=== PATIENT | female | born 2000 | race Caucasian/White ===

== ENCOUNTER 2018-08-01 07:35 | Emergency (ER) | payer BC ==
[2018-08-01 07:48] VITALS: TEMP 97.8; BMI 26.9
--- NOTE | 2018-08-01 08:32 | PDOC ---
History of Present Illness - General Chief Complaint: Pain, Acute Stated Complaint: LOWER ABDOMINAL PAIN Time Seen by Provider: 08/01/18 08:21 History Source: Patient Exam Limitations: No Limitations - History of Present Illness Initial Comments: 17 yo F w no reported pmh presents with lower/periumbilical abdominal sharp pain that began yesterday which she rates 3/4 in intensity right now but occasionally can be 7/8. She has taken ibuprofen without much improvement. Worse with standing, better lying down. Mild nausea but no emesis. She states she is not currently sexually active. She saw her PCP who was concerned with a possible thyroid issue so he told her to return in 6 to 8 weeks. Denies fevers, chills, diarrhea, constipation, chest pain, SOB, difficulty breathing, STDs PCP: Dr. Galaviz PSH: None reported LMP: 2 weeks prior Allergies: Azithromycin Social Hx: Smokes weed. Denies alcohol or cigarette usage Past History - Past Medical History Allergies/Adverse Reactions: Allergies Allergy/AdvReac Type Severity Reaction Status Date / Time azithromycin [From Zithromax] Allergy Verified 08/01/18 07:45 Home Medications: Ambulatory Orders NK [No Known Home Medication] 08/01/18 COPD: No - Suicide/Smoking/Psychosocial Hx Smoking History: Current some day smoker Information on smoking cessation initiated: No Review of Systems - Review of Systems Able to Perform ROS?: Yes Comments:: CONSTITUTIONAL: Absent: fever, no chills, no fatigue EYES: Absent: visual changes ENT: Absent: ear pain, no sore throat CARDIOVASCULAR: Absent: chest pain, no palpitations RESPIRATORY: Absent: cough, no SOB GI: Present: Abdominal pain, nausea Absent: no vomiting, no constipation, no diarrhea GENITOURINARY: Absent: dysuria, no frequency, no hematuria MUSKULOSKELETAL: Absent: back pain, no arthralgia, no myalgia SKIN: Absent: rash NEURO: Absent: headache *Physical Exam - Vital Signs Last Vital Signs Temp Pulse Resp BP Pulse Ox 97.8 F 79 18 125/73 99 08/01/18 07:47 08/01/18 07:47 08/01/18 07:47 08/01/18 07:47 08/01/18 07:47 - Physical Exam Comments: GENERAL: Well-appearing, well-nourished. No apparent distress. HEENT: Normocephalic, atraumatic. PERRL, EOM intact. CARDIOVASCULAR: Normal S1, S2. Regular rate and rhythm. PULMONARY: No evidence of respiratory distress. Lungs clear to auscultation bilaterally. No wheezing, rales or rhonchi. ABDOMEN: Mild TTP in the RLQ and LLQ. Abdomen is soft and non-distended. Normal bowel sounds. Mild Suprapubic TTP. EXTREMITIES: Normal ROM in all four extremities. No gross deformities. SKIN: Warm, dry. No rash NEUROLOGICAL: No focal neurological deficits. Moderate Sedation - Procedure Monitoring Vital Signs: Procedure Monitoring Vital Signs Temperature 97.8 F 08/01/18 07:47 Pulse Rate 79 08/01/18 07:47 Respiratory Rate 18 08/01/18 07:47 Blood Pressure 125/73 08/01/18 07:47 O2 Sat by Pulse Oximetry (%) 99 08/01/18 07:47 ED Treatment Course - LABORATORY CBC & Chemistry Diagram: 08/01/18 10:24 08/01/18 10:24 Medical Decision Making - Medical Decision Making 17 yo F w no reported pmh presents with lower/periumbilical abdominal sharp pain that began yesterday which she rates 3/4 in intensity right now but occasionally can be 7/8. She has taken ibuprofen without much improvement. Worse with standing, better lying down. Mild nausea but no emesis. She states she is not currently sexually active. VSS DDx IBNLT: UTI/pylo, kidney stones, appendicitis, ovarian torsion, ovarian cyst , vs ectopic, middleschmerz. Plan: Urine, labs, US, re-assess. US shows ovarian cyst Labs unremarkable Urine clean HCG negative This pain is likely secondary to middlescmerz or an ovarion cyst. Patient states she will schedule a follow up appointment today to meet with her OB DCing w return precautions. 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 Come back to the ER if your pain worsens, you get a fever or have any other new or worsening concerns. Thank you for coming to the [facility]. We hope you feel better soon! Print Language: SALVADOREAN - Post Discharge Activity
--- NOTE | 2018-08-01 08:44 | PDOC ---
Attending Attestation - Resident Resident Name: Mikel Matta - ED Attending Attestation I have performed the following: I have examined & evaluated the patient, The case was reviewed & discussed with the resident, I agree w/resident's findings & plan - HPI HPI: 08/01/18 08:43 17 yo F w no medical history presents with lower/periumbilical abdominal sharp pain that began yesterday worse on the right. She has taken ibuprofen without much improvement. Worse with standing, better lying down. Mild nausea but no emesis. She states she is not currently sexually active. no recent abx use. She saw her PCP who was concerned with a possible thyroid issue so he told her to return in 6 to 8 weeks. Denies fevers, chills, casey or dizziness, vomiting, diarrhea, constipation, urinary sx. PCP: Dr. Galaviz 08/01/18 09:25 - Physicial Exam PE: 08/01/18 09:26 NAD, well appearing, PERRL, EOMI, MMM, nl conjunctiva, anicteric; neck supple. lungs clear, RRR, abdomen soft +RLQ tenderness; no rebound or guarding. no CVAT. DIAZ x4, no focal neuro deficits. No peripheral edema. normal color for ethnicity, WWP. - Medical Decision Making 08/01/18 09:27 See HPI for details DDx abdominal pain: Renal colic, biliary colic, metabolic/electrolyte derangements. GERD, PUD, esophageal spasm, pancreatitis, hepatitis, constipation , UTI, pyelonephritis, ileus, SBO, medication side effect, hernia, appendicitis , diverticulitis, ovarian cyst/torsion. Mittelschmerz. Vital signs reviewed, wnl. Prior notes reviewed, including admissions, discharges and consultations. laboratory results and imaging reviewed, basic labs and lytes wnl, UA_ neg for infection. neg preg test ED course: declined analgesia. due to RLQ tenderness, r/o appy vs r/o pelvic/ovarian etiology. US neg for acute pathology. no FF, +left ovarian cyst noted, no torsion this could be Mittelschmerz vs ovarian cyst related pain. The patient appears comfortable and states that pain is improved. Later Given medications ibuprofen with clinical improvement. Tolerating oral intake. ambulating in the department. Vital signs reviewed and are normal. On repeat physical exam, the abdomen is soft and nontender, no suggestive findings for acute abdominal process at this time. All diagnostics tests reviewed and discussed with the patient. DC in stable condition, communications senior associate followup, return precautions including s/s for worse infection/inflammation, appy, or other concerns. pt verbalized understanding of impression and plan. Patient does not suffer from an acute life -threatening medical condition at this time she is safe for outpatient follow- up. 08/01/18 09:28 08/01/18 11:45 08/01/18 11:47
[2018-08-01 09:22] LABS: URINE APPEARANCE CLEAR; URINE BILIRUBIN NEGATIVE (<2.0 mg/dL); URINE COLOR LTYELLOW; URINE GLUCOSE (UA) NEGATIVE (NEGATIVE); URINE KETONE NEGATIVE (NEGATIVE); URINE LEUK ESTERASE NEGATIVE (NEGATIVE); URINE NITRITE NEGATIVE (NEGATIVE); URINE PROTEIN NEGATIVE (NEGATIVE); URINE UROBILINOGEN NEGATIVE mg/dL (0.2-1.0)
[2018-08-01 11:15] LABS: BASO % 0.3 % (0-2.0); EOS % 2.6 % (0-4.5); HEMOGLOBIN 13.2 GM/dL (10.7-15.3); MCH 29.2 pg (25.7-33.7); MCHC 33.7 g/dl (32.0-36.0); MEAN CELL VOLUME 86.7 fl (80-96); MEAN PLT VOLUME 9.2 fl (7.5-11.1); MONO % 6.9 % (3.8-10.2); NEUT % 75.2 % (42.8-82.8); PLATELET COUNT 239 K/MM3 (134-434); RDW 13.7 % (11.6-15.6); WHITE BLOOD COUNT 9.4 K/mm3 (4.0-10.0)
[2018-08-01] MEDS ORDERED: IBUPROFEN 400 MG TABLET (FP) PO ONE ×2 (11:37→11:43)
[2018-08-01 11:42] LABS: ALBUMIN 3.9 g/dl (3.4-5.0); ALK PHOS 90 U/L (45-117); ANION GAP 2 MMOL/L (8-16); BILIRUBIN,TOTAL 0.4 mg/dL (0.2-1); BLOOD UREA NITROGEN 7 mg/dL (7-18); CALCIUM 8.8 mg/dL (8.5-10.1); CHLORIDE 106 mmol/L (98-107); CO2 30 mmol/L (21-32); CREATININE 0.6 mg/dL (0.55-1.3); GLUCOSE,RANDOM 102 mg/dL (74-106); POTASSIUM 4.3 mmol/L (3.5-5.1); SGOT/AST 12 U/L (15-37); SGPT/ALT 14 U/L (13-61); SODIUM 137 mmol/L (136-145); TOT PROT 7.1 g/dl (6.4-8.2)
[2018-08-01 12:13] VITALS: BP 108/73; PULSE 82
== END 2018-08-01 12:13 | disposition home or self-care (01) ==
LOC: JER 07:35
DX: N83.292 Other ovarian cyst, left side (principal); N83.291 Other ovarian cyst, right side
CPT/HCPCS: 36415; 76856-TC; 80053; 81003; 84703; 85025; 87086; 99282-25